=== PATIENT | female | born 1980 | race Caucasian/White ===

== ENCOUNTER 2020-03-29 00:17 | Emergency (ER) | payer OTHER ==
--- NOTE | 2020-03-29 00:24 | ED.PDOC ---
History of Present Illness - General Chief Complaint: Allergic Reaction Time Seen by Provider: 03/29/20 00:23 Source: patient - History of Present Illness Initial Comments: 39 YO female with PMH of HTN who presents with chief complaint of tongue and lip swelling. Reports began around 7 hours ago at the [facility] where she is staying-began with some mild swelling of her lips. States went to sleep and woke up approximately 1.5 hours ago with new onset swelling of her tongue and worsening swelling of her lips and face. The swelling seemed to continue to progress and patient became very anxious and reported briefly some dyspnea. She took Benadryl 50 mg p.o. with little relief. A friend she was staying with had an EpiPen and so she called a family member who is a doctor who advised her to inject it into her left thigh. After injection she reported rapid relief of all symptoms over the next 10 minutes. Now reports feeling markedly improved and states her lip and tongue swelling are nearly totally resolved. She reports some mild nausea and anxiety but otherwise feeling much better. Denies any chest pain, cough, fevers, chills, sore throat, abdominal pain, urinary symptoms, leg swelling, rash. Reports similar mild swelling of her lips which has occurred rarely over the past year or so. Has always thought it might be an allergic reaction but has not been able to figure out what. She reports symptoms have never been as severe as today's episode. She does take lisinopril 30 mg once daily, but states that she has taken this since age 24. She does admit to drinking several beers today and reports that she ate some chips with cilantro and guacamole. Patient lives in [place], [place], and is here visiting for the weekend. Allergies/Adverse Reactions: Allergies Cefaclor [From Ceclor] Adverse Reaction (Verified 03/29/20 00:56) Cephalexin [From Keflex] Adverse Reaction (Verified 03/29/20 00:56) Home Medications: Ambulatory Orders EPINEPHrine AUTO-INJ [EpiPen] 0.3 mg IM ONCE PRN 60 Days #1 pen 03/29/20 Lisinopril 30 mg PO 03/29/20 Prednisone 60 mg PO DAILY 5 Days #15 tab 03/29/20 tiZANidine [Zanaflex] 4 mg PO PRN PRN 03/29/20 Review of Systems - Review of Systems Review of Systems: 03/29/20 00:52 as per HPI All other Systems: Reviewed and Negative Family Medical History - Family History Mother Family History: Unknown Physical Exam - Physical Exam General Appearance: Alert, Comfortable, No apparent distress Eye Exam: bilateral normal Ears, Nose, Throat: hearing grossly normal, normal ENT inspection, normal pharynx Neck: non-tender, full range of motion, supple, normal inspection Respiratory: chest non-tender, lungs clear, normal breath sounds, no respiratory distress, no accessory muscle use Cardiovascular/Chest: normal peripheral pulses, no edema, no gallop, no JVD, no murmur, tachycardia Peripheral Pulses: radial,right: 2+, radial,left: 2+ Gastrointestinal/Abdominal: non tender, soft, no organomegaly Back Exam: normal inspection, no CVA tenderness, no vertebral tenderness Extremity: normal range of motion, non-tender, normal inspection, no pedal edema, no calf tenderness Neurologic: customer loyalty representative II-XII nml as tested, no motor/sensory deficits, alert, normal mood/affect, oriented x 3 Skin Exam: normal color, warm/dry Progress - Progress Progress: 03/29/20 00:53 Acute angioedema -Suspect ACEinhibitor induced. Consider also allergic vs idiopathic vs Hereditary vs other. -Appears now fully resolved upon ED arrival s/p epi injection. Tachycardic upon arrival but vitals otherwise WNL. -Monitor closely on telemetry in the ED, frequent reassessments -Given epi injection and patient with history of HTN, will obtain blood work, troponin, EKG, chest x-ray 03/29/20 01:57 -Patient remained stable, no return of any angioedema symptoms, vitals are within normal limits -Labs reveal sodium of 124 and potassium of 3.3. Potassium level was replenished orally in the ED. I suspect her hyponatremia is due to her large beer intake today. Troponin level was within normal limits. Remainder of labs were unremarkable. -Discussed diagnosis of acute angioedema, uncertain if HAVEN inhibitor induced or allergic or other. Advised to discontinue lisinopril. Will place on prednisone 60 mg daily for 5 days and advised continued use of Benadryl as needed. Will give prescription of as needed EpiPen and advised on proper usage. Advised close follow-up with PCP and will likely need outpatient net application support specialist referral. -DC to home in good condition, return warnings discussed at length. Basil Tran MD Billing #[id number] 03/29/20 00:35 IV Care:Saline Lock per Protoc QSHIFT Telemetry .ONCE Sodium Chloride 0.9% (Flush) [Saline Flush Syringe] 10 ml IV PRN PRN Pulse Oximetry Assessment DAILY 03/29/20 00:45 EKG STAT EKG STAT 03/29/20 09:00 Pulse Ox Daily Laboratory Results - last 24 hr 03/29/20 03/29/20 03/29/20 00:44 00:44 00:44 WBC 8.6 RBC 3.86 L Hgb 12.5 Hct 36.7 MCV 95.2 MCH 32.5 H MCHC 34.1 RDW 12.3 Plt Count 260 MPV 7.0 L Absolute Neuts (auto) 6.10 Absolute Lymphs (auto) 1.70 Absolute Monos (auto) 0.60 Absolute Eos (auto) 0.10 Absolute Basos (auto) 0.10 Neutrophils % 70.9 Lymphocytes % 20.3 Monocytes % 6.7 Eosinophils % 1.4 Basophils % 0.7 Sodium 124 L Potassium 3.3 L Chloride 94 L Carbon Dioxide 21 Anion Gap 12.3 BUN 8 Creatinine 0.56 L BUN/Creatinine Ratio 14.3 Random Glucose 102 Serum Osmolality 248.2 L* Calcium 8.7 Troponin I < 0.02 Urine Color Urine Appearance Urine pH Ur Specific [place] Urine Protein Urine Glucose (UA) Urine Ketones Urine Blood Urine Nitrite Urine Bilirubin Urine Urobilinogen Ur Leukocyte Esterase Urine RBC Urine WBC Ur Epithelial Cells Urine Bacteria Urine HCG, Qual 03/29/20 03/29/20 01:28 01:28 WBC RBC Hgb Hct MCV MCH MCHC RDW Plt Count MPV Absolute Neuts (auto) Absolute Lymphs (auto) Absolute Monos (auto) Absolute Eos (auto) Absolute Basos (auto) Neutrophils % Lymphocytes % Monocytes % Eosinophils % Basophils % Sodium Potassium Chloride Carbon Dioxide Anion Gap BUN Creatinine BUN/Creatinine Ratio Random Glucose Serum Osmolality Calcium Troponin I Urine Color Yellow Urine Appearance Clear Urine pH 5.0 Ur Specific [place] 1.010 Urine Protein Negative Urine Glucose (UA) Negative Urine Ketones Negative Urine Blood Negative Urine Nitrite Negative Urine Bilirubin Negative Urine Urobilinogen 0.2 Ur Leukocyte Esterase Negative Urine RBC 0 Urine WBC 0 Ur Epithelial Cells 1-3 Urine Bacteria 0 Urine HCG, Qual Negative - EKG/XRAY/CT EKG: Sinus, Tachy - HR 110, no ST elevs or q waves noted, Right axis deviation present, intervals normal, no prior EKG for comparison XRAY: chest - no acute processes per my read Departure - Departure Clinical Impression: HAVEN inhibitor-aggravated angioedema Qualifiers: Encounter type: initial encounter Qualified Code(s): T78.3XXA - Angioneurotic edema, initial encounter Time of Disposition: 01:52 Disposition: Discharge to Home or Self Care Condition: Fair Departure Forms: ED Discharge - Pt. Copy, Patient Portal Self Enrollment Instructions: Angioedema (DC) Diet: resume usual diet Activity: increase activity as tolerated Prescriptions: EPINEPHrine AUTO-INJ [EpiPen] 0.3 mg IM ONCE PRN 60 Days #1 pen PRN Reason: Allergies Prednisone 60 mg PO DAILY 5 Days #15 tab Home Medications: Ambulatory Orders EPINEPHrine AUTO-INJ [EpiPen] 0.3 mg IM ONCE PRN 60 Days #1 pen 03/29/20 Lisinopril 30 mg PO 03/29/20 Prednisone 60 mg PO DAILY 5 Days #15 tab 03/29/20 tiZANidine [Zanaflex] 4 mg PO PRN PRN 03/29/20 Additional Instructions: Take the prednisone as directed. You may continue to take Benadryl 50 mg every 4-6 hours as needed for any allergic-like symptoms. If you develop rapid return of swelling to the lips or tongue and are unable to get to the ED immediately, use the EpiPen injector as directed with insertion into the upper outer thigh region and get to the ED as soon as possible or call 911. Quit taking your lisinopril medication as this can be a common cause of angioedema. Follow-up with your primary care physician is recommended in the next 1 to 2 weeks for repeat evaluation and to further discuss your blood pressure medications. You will also need repeat bloodwork done as your sodium and potassium levels were noted to be low this visit.
[2020-03-29] MEDS ORDERED: SODIUM CHLORIDE 0.9% (FLUSH) 10 ML SYG IV PRN (00:35)
[2020-03-29] MEDS ORDERED: DEXAMETHASONE INJ 10 MG/ML VIAL IV ONE (00:37)
[2020-03-29] MEDS ORDERED: SODIUM CHLORIDE 0.9% 1000ML 1,000 ML IVS ONE (00:37)
[2020-03-29] MEDS ORDERED: POTASSIUM CHLORIDE 20 MEQ TAB PO ONE (01:10)
--- NOTE | 2020-03-29 01:28 | RAD ---
CHEST 1 VIEW on 03/29/2020 CLINICAL INDICATION: Acute angioedema COMPARISON: None FINDINGS: The lungs are clear. Cardiac, hilar and mediastinal contours are within normal limits. Pulmonary vascularity is within normal limits. No bony abnormality is noted. IMPRESSION: No active disease. Electronically signed by: Kristian Aparicio 03/29/2020 1:27 AM CDT
[2020-03-29] MEDS ORDERED: ONDANSETRON INJ 4 MG/2 ML VIAL IV ONE (01:43)
[2020-03-29 01:47] VITALS: BP 131/87; TEMP 99.2; O2SAT 100
[2020-03-29] MEDS ORDERED: diphenhydrAMINE HCL 50 MG/ML VIAL IV ONE (01:50)
== END 2020-03-29 02:03 | disposition home or self-care (01) ==
LOC: ER 00:17
DX: T78.3XXA Angioneurotic edema, initial encounter (principal); R00.0 Tachycardia, unspecified; I10 Essential (primary) hypertension; E87.1 Hypo-osmolality and hyponatremia; E87.6 Hypokalemia; Z79.899 Other long term (current) drug therapy; Y92.9 Unspecified place or not applicable
CPT/HCPCS: 71045; 80048; 81001; 81025; 84484; 85025; 93005; A4216; J1100; J1200; J2405; J7030